=== PATIENT | female | born 1995 | race Caucasian/White ===

== ENCOUNTER 2017-08-02 16:14 | Outpatient (CLI) ==
[2016-08-06 13:15] VITALS: BMI 44.3
[2017-08-02 16:36] LABS: BASOPHILS # (AUTO) 0.1 K/uL (0-0.2); BASOPHILS % (AUTO) 0.6 % (0.0-3.0); EOSINOPHILS # (AUTO) 0.2 K/ul (0.0-0.7); EOSINOPHILS % (AUTO) 1.5 % (0.0-7.0); HEMATOCRIT 40.6 % (37.0-47.0); HEMOGLOBIN 13.2 g/dl (12.0-16.0); IMMATURE GRANULOCYTE % (AUTO) 0.3 % (0.0-5.0); LYMPHOCYTES % (AUTO) 16.8 (10.0-50.0); MEAN CORPUSCULAR HEMOGLOBIN 27.9 pg (27.0-31.0); MEAN CORPUSCULAR HGB CONC 32.5 (31.8-35.4); MEAN CORPUSCULAR VOLUME 85.8 fl (81.0-99.0); MONOCYTES # (AUTO) 0.7 K/uL (0.4-2.0); MONOCYTES % (AUTO) 5.8 (0-10); NEUTROPHILS # (AUTO) 8.9 K/ul (2.0-6.9); PLATELET COUNT 322 10^3/uL (140-440); RED BLOOD COUNT 4.73 10^6/ul (4.20-5.40); WHITE BLOOD COUNT 11.83 K/ul (4.6-10.2)
[2017-08-02 17:07] LABS: COCAIN SCREEN,URINE NEGATIVE (NEGATIVE)
[2017-08-02 17:13] LABS: ALBUMIN 3.5 g/dL (3.4-5.0); ALBUMIN/GLOBULIN RATIO 0.73; ANION GAP 14.1; BILIRUBIN,TOTAL 0.32 mg/dL (0.00-1.20); BUN/CREATININE RATIO 13.33; CALCIUM 9.8 mg/dL (8.2-10.2); CHOL/HDL RATIO 4.5 (4.5-5.5); CREATININE 0.75 mg/dL (0.60-1.30); POTASSIUM 4.1 mmol/L (3.5-5.10); TOTAL PROTEIN 8.3 g/dL (6.4-8.2)
== END 2017-08-02 16:15 | disposition home or self-care (01) ==
LOC: LAB 16:14
PROVIDERS: ATTEND Nurse Practitioner Family
DX: F41.1 Generalized anxiety disorder (principal); F43.9 Reaction to severe stress, unspecified
CPT/HCPCS: 36415; 80053; 80061; 80306; 84443; 85025

== ENCOUNTER 2017-08-13 15:25 | Emergency (ER) ==
[2017-08-13 15:31] VITALS: BP 158/86; TEMP 98.4; BMI 45.8
[2017-08-13] MEDS ORDERED: ATIVAN PO STA (15:37)
[2017-08-13 15:58] LABS: BASOPHILS # (AUTO) 0.1 K/uL (0-0.2); BASOPHILS % (AUTO) 0.4 % (0.0-3.0); EOSINOPHILS # (AUTO) 0.3 K/ul (0.0-0.7); EOSINOPHILS % (AUTO) 2.3 % (0.0-7.0); HEMATOCRIT 39.3 % (37.0-47.0); HEMOGLOBIN 13.1 g/dl (12.0-16.0); IMMATURE GRANULOCYTE % (AUTO) 0.4 % (0.0-5.0); LYMPHOCYTES # (AUTO) 2.3 K/uL (0.60-3.4); LYMPHOCYTES % (AUTO) 18.6 (10.0-50.0); MEAN CORPUSCULAR HEMOGLOBIN 28.3 pg (27.0-31.0); MEAN CORPUSCULAR HGB CONC 33.3 (31.8-35.4); MEAN CORPUSCULAR VOLUME 84.9 fl (81.0-99.0); MONOCYTES # (AUTO) 0.8 K/uL (0.4-2.0); NEUTROPHILS % (AUTO) 72.3; PLATELET COUNT 327 10^3/uL (140-440); RED BLOOD COUNT 4.63 10^6/ul (4.20-5.40); WHITE BLOOD COUNT 12.43 K/ul (4.6-10.2)
--- NOTE | 2017-08-13 16:37 | US ---
EXAM: Left upper extremity venous Doppler HISTORY: Concern for DVT with left upper extremity pain. COMPARISON: None TECHNIQUE: Sonographic and Doppler evaluation of the left upper extremity vessels were obtained. Au gmentation and compression techniques were also performed. FINDINGS: There is spontaneous Doppler flow seen in the left lower extremity veins. There is normal compression and augmentation throughout the extremity veins. There is no visualized reflux. Sonogr aphic appearance of the soft tissues are unremarkable. IMPRESSION: No left upper extremity thrombus
[2017-08-13 16:41] LABS: ALANINE AMINOTRANSFERASE 24 U/L (12-78); ALBUMIN 3.3 g/dL (3.4-5.0); ALBUMIN/GLOBULIN RATIO 0.75; ALKALINE PHOSPHATASE 102 U/L (42-98); ANION GAP 13.9; ASPARTATE AMINO TRANSFERASE 15 U/L (15-37); BILIRUBIN,TOTAL 0.27 mg/dL (0.00-1.20); BLOOD UREA NITROGEN 11 mg/dL (7-18); CALCIUM 9.3 mg/dL (8.2-10.2); CARBON DIOXIDE 24 mmol/L (21-32); CHLORIDE 105 mmol/L (98-107); CREATINE KINASE 43 U/L; CREATININE 0.78 mg/dL (0.60-1.30); GLUCOSE 104 mg/dL (70-110); POTASSIUM 3.9 mmol/L (3.5-5.10); SODIUM 139 mmol/L (136-145); TOTAL PROTEIN 7.7 g/dL (6.4-8.2)
--- NOTE | 2017-08-13 16:45 | ED.PDOC ---
General ED Provider: Dr. SHARYN BILLY Chief Complaint: Extremity Pain/Injury Stated Complaint: LEFT ARM NUMBNESS Time Seen by Physician: 15:30 (NUMBNESS AROUND MOUTH AND LEFT ARM NEGATIVE TRAUMA ) Mode of Arrival: Walk-In Information Source: Patient, Other (OCCURED TODAY ) Exam Limitations: No limitations [facility] Nursing and Triage Documentation Reviewed and Agree: Yes (THIS PT WAS SEEN AT ALL TIMES WITH NURSING STAFF AND AND DAVID ) Musculoskeletal Complaint Exam - Upper Extremity Complaint/Exam Location of Pain: Reports: Left, Arm Mechanism of Injury: Reports: No known trauma Onset/Duration: TODAY Symptoms Are: Still present (NUMBNESS AROUND MOUTH AND LEFT ARM) Timing: Constant Episodes Lasting: Hours Initial Severity: Mild Current Severity: Mild Location: Reports: Discrete Character: Denies: Aching, Throbbing, Spasmodic, Stiffness, Burning Aggravating: Reports: None Alleviating: Reports: None Non-Orthopedic Risk Factors: Reports: None DVT Risk Factors: Reports: None Septic Arthritis Risk Factors: Reports: None Related Surgical History: Reports: None Upper Extremity Findings: Absent: Swelling, Ecchymosis, Abnormal contour, Rotation, Ligamentous instability, Laceration, Erythema, Blisters, Other joint pain, Foreign body, Tenderness, Limited range of motion NV Bundle Intact Distal to Injury: Yes Differential Diagnoses: Strain, Sprain Quality Indicator For Non-Traumatic Chest Pain/Syncope: EKG Performed Review of Systems - Review Of Systems Constitutional: Reports: No symptoms Eyes: Reports: No symptoms Ears, Nose, Mouth, Throat: Reports: No symptoms Respiratory: Reports: No symptoms Cardiac: Reports: No symptoms GI: Reports: No symptoms : Reports: No symptoms Musculoskeletal: Reports: Other (LEFT ARM NUMBNESS ) Skin: Reports: No symptoms Neurological: Reports: No symptoms Endocrine: Reports: No symptoms Hematologic/Lymphatic: Reports: No symptoms All Other Systems: Reviewed and Negative Past Medical History - Past Medical History Previously Healthy: Yes Endocrine: Reports: None Cardiovascular: Reports: None Respiratory: Reports: None Hematological: Reports: None Gastrointestinal: Reports: None Genitourinary: Reports: None Neuro/Psych: Reports: Other (bells) Musculoskeletal: Reports: None Cancer: Reports: None Last Menstrual Period: february Other Pertinent Past Medical History: BELLS PALSY - Surgical History General Surgical History: Reports: None - Family History Family History: Reports: Unknown - Social History Smoking Status: Never smoker Hx Substance Use: No Alcohol Screening: None Physical Exam - Physical Exam Appearance: Well-appearing, No pain distress, Well-nourished Eyes: YOLI, EOMI, Conjunctiva clear ENT: Ears normal, Nose normal, Oropharynx normal Respiratory: Airway patent, Breath sounds clear, Breath sounds equal, Respirations nonlabored Cardiovascular: RRR, Pulses normal, No rub, No murmur GI/: Soft, Nontender, No masses, Bowel sounds normal, No Organomegaly Musculoskeletal: Normal strength, ROM intact, No edema, No calf tenderness Skin: Warm, Dry, Normal color Neurological: Sensation intact, Motor intact, Reflexes intact, Cranial nerves intact, Alert, Oriented Psychiatric: Affect appropriate, Mood appropriate Interpretation - Radiology Interpretation Radiology Interpretation By: Radiologist Radiology Results: No acute changes Re-Evaluation - Re-Evaluation Time of Re-Evaluation: 16:30 (SEEN WITH DAVID) Status: Improved Vital Signs Stable: Yes Pain Level: 0 Appearance: NAD Lungs: Clear Skin: Warm and Dry Neuro: Alert and Oriented X3 CV: RRR - Re-Evaluation Time of Re-Evaluation: 17:10 (SEEN WITH MARGE PICHARDO EKG AND LVH DISCUSSED WITH JULIÁN AT BEDSIDE) Status: Improved Vital Signs Stable: Yes Pain Level: 0 Appearance: NAD Skin: Warm and Dry Neuro: Alert and Oriented X3 CV: RRR Critical Care Note - Critical Care Note Total Time (mins): 0 Course - Course Hematology/Chemistry: 08/13/17 15:55 Orders, Labs, Meds: Lab Review 08/13/17 15:55 WBC 12.43 H RBC 4.63 Hgb 13.1 Hct 39.3 MCV 84.9 MCH 28.3 MCHC 33.3 RDW Coeff of Jese 14.1 Plt Count 327 Immature Gran % (Auto) 0.4 Neut % (Auto) 72.3 Lymph % (Auto) 18.6 [place] % (Auto) 6.0 Eos % (Auto) 2.3 Baso % (Auto) 0.4 Immature Gran # (Auto) 0.1 Neut # 9.0 H Lymph # 2.3 [place] # 0.8 Eos # 0.3 Baso # 0.1 Orders Category Date Time Status EKG-(ED ONLY) Stat CARDIO 08/13/17 15:36 Ordered CBC W/ AUTO DIFF Stat LAB 08/13/17 15:36 Ordered COMPREHENSIVE METABOLIC PANEL Stat LAB 08/13/17 15:36 Ordered CREATINE KINASE Stat LAB 08/13/17 15:36 Ordered FREE T4 (FREE THYROXINE) Stat LAB 08/13/17 15:55 Received THYROID STIMULATING HORMONE Stat LAB 08/13/17 15:55 Received TROPONIN I Stat LAB 08/13/17 15:36 Ordered URINE DRUG SCREEN (RAPID FOR ED) [DRUG SCREEN, URINE, LAB 08/13/17 15:37 Uncollected RAPID] Stat URINE Stat LAB 08/13/17 15:38 Uncollected Lorazepam [Ativan] MEDS 08/13/17 15:37 Stat 1 mg PO ONCE STA CT HEAD W/O CONTRAST Stat RADS 08/13/17 15:36 Ordered ULTRASOUND VENOUS SCAN LT. ARM [U/S VENOUS SCAN LT. ARM RADS 08/13/17 15:39 Ordered ] Stat Medications Discontinued Medications Generic Name Dose Route Start Last Admin Trade Name Freq PRN Reason Stop Dose Admin Lorazepam 1 mg 08/13/17 15:37 08/13/17 16:21 Ativan PO 08/13/17 15:38 1 mg ONCE STA Administration Vital Signs: Temp Pulse Resp BP Pulse Ox 08/13/17 15:26 98.4 F 96 H 18 158/86 H 98 Departure - Departure Time of Disposition: 18:00 Disposition: HOME SELF-CARE Discharge Problem: Cardiomegaly Instructions: Paresthesia (ED), Heart Healthy Diet (ED) Condition: Good Pt referred to PMD for follow-up: Yes Additional Instructions: Please call your Family Physician as soon as possible to schedule a follow-up appointment. YOUR LEFT VENTRICLE IS ENLARGED THIS SHOULD BE EXAMINED ECHO AND CARDIOLOGY. THE ENLARGED HEART IS SOMETIMES IS ASSOCIATED WITH DEADLY DISEASES SEE YOUR MD SOON POSSIBLE Allergies/Adverse Reactions: Allergies No Known Allergies Allergy (Verified 08/13/17 15:32) Disposition Discussed With: Patient, Family
[2017-08-13 16:54] LABS: SERUM PREGNANCY INTERNAL QC INTERNAL QC VALID
[2017-08-13 17:03] LABS: COCAIN SCREEN,URINE NEGATIVE (NEGATIVE)
--- NOTE | 2017-08-13 17:20 | CT ---
EXAM: CT brain without contrast HISTORY: Numbness in mouth today, head pain TECHNIQUE: Multi-slice transaxial helical with coronal and sagital reformated images COMPARISON: CT brain from 02/05/2015 FINDINGS: The midline structures are central. The ventricles are neither dilated nor displaced. Th e brain attenuation with its bang-white matter interface is normal. No acute intraparenchymal or extr aaxial hemorrhagic collections are detected. The calvarium is intact. The visible paranasal sinuses and mastoid air cells are clear. IMPRESSION: No acute intracranial process.
== END 2017-08-13 17:28 | disposition home or self-care (01) ==
LOC: ED 15:25
DX: I51.7 Cardiomegaly (principal); R20.2 Paresthesia of skin
CPT/HCPCS: 36415; 80053; 80306; 82550; 84439; 84443; 84484; 84703; 85025; 93005; 93010; 99283